=== PATIENT | male | born 1955 | race Caucasian/White ===

== ENCOUNTER 2020-07-26 07:34 | Day surgery (SDC) | payer OTHER ==
[2020-07-23 11:12] VITALS: BMI 38.3
[~2020-07-26 07:34] MED LIST: ALPRAZolam 0.25 MG TAB PO PRN; ALPRAZolam 0.5 MG TAB PO PRN; ASPIRIN 325 MG TAB PO STA; ATORVASTATIN 80 MG TAB PO STA; NITROGLYCERIN SL TABS 0.4 MG TAB SUBLINGUAL PRN; SODIUM CHLORIDE 0.9% 1,000 ML in EMPTY BAG 1 BAG IV ONE
[2020-07-26] MEDS ORDERED: SODIUM CHLORIDE 0.9% 1,000 ML IV ONE (08:08)
[2020-07-26 08:21] LABS: Glucose,Whole Blood 105 mg/dL (75-99)
[2020-07-26 08:26] VITALS: RESP 16; TEMP 97.6
[2020-07-26] MEDS ORDERED: LIDOCAINE 1% INJ 10MG/ML (20 ML MDV) ONE (08:34)
[2020-07-26] MEDS ORDERED: HEPARIN SODIUM 1,000 UN/ML (10ML VL) ONE (08:35)
[2020-07-26] MEDS ORDERED: VERAPAMIL 2.5 MG/ML 2 ML AMP ONE (08:35)
[2020-07-26] MEDS ORDERED: MIDAZOLAM 2 MG/2 ML VIAL IVP ONE ×2 (09:34→09:41)
[2020-07-26] MEDS ORDERED: NITROGLYCERIN SL TABS 0.4 MG TAB SUBLINGUAL ONE (09:37)
[2020-07-26] MEDS ORDERED: LIDOCAINE 1% INJ 10MG/ML (20 ML MDV) SQ ONE (09:38)
[2020-07-26] MEDS ORDERED: VERAPAMIL SYRINGE (5 MG/10 ML) INTRAARTER ONE (09:40)
[2020-07-26] MEDS ORDERED: HEPARIN SODIUM 1,000 UN/ML (10ML VL) IVP ONE (09:43)
[2020-07-26] MEDS ORDERED: NITROGLYCERIN 1000MCG/10ML SYRINGE INTRACORON ONE (09:55)
[2020-07-26] MEDS ORDERED: IOPAMIDOL-370 100ML BTL INJ ONE (09:59)
[2020-07-26] MEDS ORDERED: SODIUM CHLORIDE 0.45% 1,000 ML IV SCH (10:15)
--- NOTE | 2020-07-26 10:55 | CC ---
CARDIAC CATHETERIZATION REPORT DATE OF SERVICE: 07/26/2020. PROCEDURE: Left heart catheterization, coronary angiography. PERFORMED BY: Dr. Jarred Rojas. Moderate conscious sedation time was about 22 minutes. Patient was administered Versed. Oxygen saturation, hemodynamics and EKG were monitored closely. CLINICAL INFORMATION: Mr. Mendoza Street is a 64-year-old gentleman with history of hypertension, hyperlipidemia, type 2 diabetes, PAF,who had an abnormal stress test in March of last year and a carotid disease on Doppler was advised to see Vascular Surgery, who we saw but did not keep appointments with me. He presented to the office recently with symptoms of exertional shortness of breath, chest tightness, and also weight gain. He was advised cardiac cath after due discussion regarding risks, benefits, and options. PROCEDURE NOTE: Under local anesthesia and strict aseptic precautions, a 6-Latvian introducer was placed in the right radial artery. Using a JR4 and JL3.5 catheters I performed coronary angiography and the same right catheter was used to check LV pressures. LV gram was not performed. The sheath was taken out and TR band applied as per protocol. The saturation of the fingers of the right hand of more than 95%. Patient tolerated procedure well without complication. CARDIAC CATHETERIZATION FINDINGS: The left foot end-diastolic pressure was 13 mmHg without any gradient across aortic valve. CORONARY ANGIOGRAPHY FINDINGS: RIGHT CORONARY ARTERY: Large dominant vessel, tortuous, gives off a high acute marginal branch proximally and a conus branch then in the midportion has about a 45% narrowing best seen in the BLAS projection and then it bifurcates very early into PDA and PLV, both of which supply a sizable amount of myocardium. The RCA therefore has a mid 45% lesion, dominant vessel. No disease in the proximal or distal branches. LEFT MAIN CORONARY ARTERY: This is a short patent disease-free vessel that trifurcates into LAD, ramus, and circumflex. Left main itself is free of significant disease. LEFT ANTERIOR DESCENDING CORONARY ARTERY: This is a good caliber vessel extends along the anterior wall. It gives off 2 diagonal branches, very proximally and then in the midportion gives a third diagonal branch and after this third diagonal branch, the LAD appears to have a subtotal occlusion with a very limited antegrade flow and the caliber of the vessel is also very small after the second diagonal branch. The second diagonal branch comes off at a certain angle and after this you can see there is some flow in the distal LAD, but appears to be subtotally occluded. There are small septal branches also after the total occlusion, which seem to fill somewhat late. Mid LAD therefore has a total occlusion after 2 large diagonal branches and a fair-sized third diagonal branch. The amount of myocardium supplied by LAD beyond the occlusion appears to be not that much and also there is diffuse disease of the opacified segment of LAD suggesting that this may be a chronic occlusion. RAMUS INTERMEDIUS: This is a good caliber vessel, runs laterally, bifurcates into 2 or 3 small branches, has minor irregularities no significant disease. LEFT POSTERIOR CIRCUMFLEX CORONARY ARTERY: Small caliber, small distribution vessel with mild irregularities. No significant disease. LEFT VENTRICULOGRAM: Left ventriculogram was not performed. FINAL IMPRESSION: This patient has a right dominant system with a 45% mid RCA disease. Left ventricular end-diastolic pressures are normal and there is no significant gradient across aortic valve. Left main, ramus and circumflex have minor irregularities. The LAD has 100% occlusion in the midportion after 3 diagonal branches and the opacified LAD that fills late appears to be diffusely disease suggesting it is a chronic occlusion. RECOMMENDATIONS: Findings were discussed with the patient and . I am recommending that we will pursue medical therapy with risk factor modification, initiate him on Lipitor 80 mg daily, increase losartan from 50 to 100 mg daily, resume his Eliquis. This patient has hypertension, hyperlipidemia, paroxysmal atrial fibrillation and coronary artery disease. He will be discharged today and I will see him in the office next Wednesday. MMODL / IJN: [id number] / [facility]
[2020-07-26 13:04] VITALS: BP 170/84; PULSE 53
== END 2020-07-26 13:53 | disposition home or self-care (01) ==
LOC: CATHCVL 07:34
PROVIDERS: ATTEND Internal Medicine Interventional Cardiology
DX: I25.110 Atherosclerotic heart disease of native coronary artery with unstable angina pectoris (principal); I25.82 Chronic total occlusion of coronary artery; I77.1 Stricture of artery; I10 Essential (primary) hypertension; R94.39 Abnormal result of other cardiovascular function study; E78.00 Pure hypercholesterolemia, unspecified; Z20.822 Contact with and (suspected) exposure to COVID-19; E11.9 Type 2 diabetes mellitus without complications; F17.210 Nicotine dependence, cigarettes, uncomplicated; E66.9 Obesity, unspecified; Z68.39 Body mass index [BMI] 39.0-39.9, adult; Z82.49 Family history of ischemic heart disease and other diseases of the circulatory system; Z91.14 Patient's other noncompliance with medication regimen; G47.33 Obstructive sleep apnea (adult) (pediatric); I48.0 Paroxysmal atrial fibrillation; Z79.01 Long term (current) use of anticoagulants; Z79.84 Long term (current) use of oral hypoglycemic drugs; Z79.890 Hormone replacement therapy; Z79.899 Other long term (current) drug therapy
CPT/HCPCS: 93458; 87635; C1894; J2250; J2001; J1644; Q9967